=== PATIENT | female | born 1990 | race Asian ===

== ENCOUNTER 2024-06-06 08:24 | Emergency (ER) | payer BC, SELFPAY ==
--- NOTE | 2024-06-06 08:41 | PD.EDSKIN ---
ED Skin Abcess FB-RME/HPI General Chief complaint: Skin/Abscess/Foreign Body Stated complaint: body rash, pt concerned chicken pox or shingles Time Seen by Provider: 06/06/24 08:27 Source: patient, RN notes reviewed and old records reviewed Arrival date/time: 06/06/24 08:24 Mode of arrival: ambulatory Limitations: no limitations RME / HPI RME / HPI narrative: 34yof presents to ED for generalized itchy rash that initiated last night. Patient denies new soaps, detergents, foods, medications or outdoor exposures. No tongue/throat swelling, shortness of breath, nausea/vomiting or dizziness reported. No medications or treatments since symptom onset. Related Data Home Medications ?Medication ?Instructions ?Recorded ?Confirmed lisinopril 10 mg tablet 10 mg PO QDAY 10/29/18 11/17/20 atorvastatin 10 mg tablet 10 mg PO QPM 02/05/19 11/17/20 dulaglutide 1.5 mg/0.5 mL 1.5 mg subcut QWEEK 11/17/20 11/17/20 subcutaneous pen injector (Trulicity) glipizide 5 mg tablet 5 mg PO BID 11/17/20 11/17/20 metoprolol succinate 50 mg 50 mg PO QDAY 11/17/20 11/17/20 tablet,extended release 24 hr Previous Rx's ?Medication ?Instructions ?Recorded sertraline 25 mg tablet (Zoloft) 25 mg PO QDAY #30 tabs 11/17/20 azithromycin 500 mg tablet See Rx Instructions PO .COMPLEX #6 10/24/21 tabs promethazine-DM 6.25 mg-15 mg/5 mL 5 ml PO Q6H PRN cough #473 mL 10/24/21 oral syrup diphenhydramine HCl 25 mg capsule 50 mg (2 x 25 mg) PO TID PRN 06/06/24 (Benadryl) itching #30 caps famotidine 40 mg tablet (Pepcid) 40 mg PO QDAY #7 tabs 06/06/24 hydrocortisone 2.5 % topical cream 1 applic topical BID PRN itching 06/06/24 or rash #30 grams prednisone 50 mg tablet 50 mg PO QDAY #5 tabs 06/06/24 Allergies Allergy/AdvReac Type Severity Reaction Status Date / Time No Known Allergies Allergy Verified 10/24/21 12:26 Review of Systems Review of Systems Systems Reviewed: All systems reviewed, normal except as documented Constitutional Constitutional: Denies chills and Denies fever(s) ENT Ears, Nose, Mouth, and Throat: Denies throat swelling and Denies tongue swelling Cardiovascular Cardiovascular: Denies dyspnea Respiratory Respiratory: Denies dyspnea Gastrointestinal Gastrointestinal: Denies nausea and Denies vomiting Integumentary/Breasts Skin/Breast: Reports pruritus, Reports rash and Denies skin pain Allergic/Immunologic Allergic/Immunologic: Denies throat swelling and Denies tongue swelling Past Medical History Past Medical History CARDIAC: Positive Hypercholesterolemia ENDOCRINE: Positive Diabetes Mellitus Type 2 Surgical History OTHER SURGICAL HX: denies pshx Social History SMOKING STATUS: Never smoker SUBSTANCE USE: does not use ALCOHOL: Never Past Medical History Comments PMH COMMENT: obesity ED Exam General Limitations: Present no limitations General appearance: Present alert and in no apparent distress Head Head exam: Present atraumatic and normocephalic Eye Eye exam: Present normal appearance, PERRL and EOMI ENT ENT exam: Present normal exam, normal oropharynx and mucous membranes moist Neck Neck exam: Present normal inspection and full ROM Chest Chest inspection: Present normal inspection and symmetric chest wall rise Respiratory Respiratory exam: Present normal lung sounds bilaterally; Absent respiratory distress, wheezes or stridor Cardiovascular Cardiovascular exam: Present normal rhythm and tachycardia Extremities Exam Extremities exam: Present normal inspection and full ROM Neurological Exam Neurological exam: Present alert and oriented X3 Psychiatric Psychiatric exam: Present normal affect and normal mood Skin Skin exam: Present warm, dry, intact and rash (generalized scattered erythematous maculopapular rash) Course Course Course Narrative: 1000: Patient reassessed. Symptoms have not improved s/p meds administered. Will order IV solumedrol and IVF. Quality Measures none Orders Category Date Time Status Dexamethasone Inj [Decadron Inj] Med 06/06/24 08:40 Discontinued 10 mg IM X1 ONE DiphenhydrAMINE [Benadryl] Med 06/06/24 08:40 Discontinued 50 mg PO X1 ONE Famotidine [Pepcid] Med 06/06/24 08:40 Discontinued 40 mg PO X1 ONE MethylPREDNISolone.* [SoluMEDROL Inj] Med 06/06/24 10:00 Discontinued 125 mg IVP X1 ONE Sodium Chloride 0.9% 1000 ml [Ns] 1,000 ml Med 06/06/24 10:01 Discontinued IV 999 mls/hr Vital Signs Vital signs: Vital Signs Temperature 99.5 F 06/06/24 08:42 Pulse Rate 119 H 06/06/24 08:42 Respiratory Rate 20 06/06/24 08:42 Blood Pressure 150/90 H 06/06/24 08:42 Pulse Oximetry (%) 96 06/06/24 08:42 Oxygen Delivery Method Room Air 06/06/24 08:42 Skin / Abscess / Foreign Body MDM Narrative MDM Narrative:: 34yof presents to ED for generalized itchy rash that initiated last night. Patient denies new soaps, detergents, foods, medications or outdoor exposures. No tongue/throat swelling, shortness of breath, nausea/vomiting or dizziness reported. No medications or treatments since symptom onset. Symptoms improving, rash resolving after medication/IVF administered. Patient is well-appearing, no evidence of respiratory distress or airway compromise. Will Rx 5-day course of prednisone, recommended close glucose monitoring and glycemic control. po Benadryl and topical steroid prn itching. Stable for discharge, RTED precautions given. Patient data External records reviewed:: [facility] previous records (10/24/21 ED visit for URI) Clinical information provided by:: patient Social determinants that could affect healthcare access:: none Patient has the following chronic illnesses:: DM, obesity, HLD How is presenting disease/condition affected by chronic disease/condition?: uneffected by Evaluation data The following diagnostics were reviewed and interpreted by me:: other (specify) (none) Lab and/or radiology exams considered but not ordered:: none Interpretation Summary: na Medications / Prescriptions Medications or Prescriptions considered but not ordered:: no antibiotics recommended at this time Medication administrations:: Medication Administration History Discontinued Medications Dexamethasone Sodium Phosphate (Dexamethasone Sod Phos Inj 10 Mg/Ml Vial) 10 mg IM X1 ONE Stop: 06/06/24 08:41 Last Admin: 06/06/24 08:57 Dose: 10 mg Documented By: ED Diphenhydramine HCl (Diphenhydramine 25 Mg Capsule) 50 mg PO X1 ONE Stop: 06/06/24 08:41 Last Admin: 06/06/24 08:55 Dose: 50 mg Documented By: ED Famotidine (Famotidine 20 Mg Tablet) 40 mg PO X1 ONE Stop: 06/06/24 08:41 Last Admin: 06/06/24 08:55 Dose: 40 mg Documented By: ED Sodium Chloride (Ns) 1,000 mls @ 999 mls/hr IV .Q1H1M ONE Stop: 06/06/24 11:01 Last Infusion: 06/06/24 11:41 Dose: Infused Documented By: Admin: 06/06/24 10:40 Dose: 999 mls/hr Documented By: ED Methylprednisolone Sodium Succinate (Methylprednisolone Sod Succ 62.5 Mg/Ml 2ml Vial) 125 mg IVP X1 ONE Stop: 06/06/24 10:01 Last Admin: 06/06/24 10:41 Dose: 125 mg Documented By: ED above medications administered in ED Consultations Consultation(s) initiated? (list below): No Diagnosis Skin/Abscess Differential Diagnosis: viral exanthem, urticaria, allergic reaction to drug, eczema, insect bites and contact dermatitis Most likely diagnosis given after review of the tests above:: dermatitis, allergic reaction Admission Indicated Admission indicated?: not indicated Admission Request Was there a request for admission?: No Disposition Plan Disposition Plan: Discharge Discharge Attestation Discharge Attestation: The patient and all family members were given an opportunity to ask questions and understood the discharge instructions. Discharge instructions specifically effects, indications for sooner follow up or return to the emergency department, and the expected course of current diagnosis. Patient condition: Stable Discharge Plan Plan Patient Disposition: HOME (Self Care) Patient condition on transfer: Stable Prescriptions/Referrals Prescriptions/Med Rec: New prednisone 50 mg tablet 50 mg PO QDAY Qty: 5 0RF diphenhydramine HCl [Benadryl] 25 mg capsule 50 mg PO TID PRN (Reason: itching) Qty: 30 0RF famotidine [Pepcid] 40 mg tablet 40 mg PO QDAY Qty: 7 0RF hydrocortisone 2.5 % cream 1 applic topical BID PRN (Reason: itching or rash) Qty: 30 0RF No Action lisinopril 10 mg tablet 10 mg PO QDAY atorvastatin 10 mg Tablet 10 mg PO QPM metoprolol succinate 50 mg Tablet Extended Release 24 Hr 50 mg PO QDAY glipizide 5 mg Tablet 5 mg PO BID Trulicity 1.5 mg/0.5 mL pen injector 1.5 mg SUBCUT QWEEK Patient Comments: INJECT 1 APPLICATION SUBCUTANEOUSLY DIRECTED WEEKLY Rx Instructions: . sertraline [Zoloft] 25 mg tablet 25 mg PO QDAY Qty: 30 0RF promethazine-DM 6.25-15 mg/5 mL syrup 5 ml PO Q6H PRN (Reason: cough) Qty: 473 0RF azithromycin 500 mg tablet See Rx Instructions .ROUTE .COMPLEX Qty: 6 0RF Rx Instructions: take 500 mg today (day 1), then 250 mg for 4 days (days 2-5) Referrals: Anahi Portillo MD [Primary Care Provider] - In 1 week Problem List Clinical Impression: Dermatitis, Allergic reaction Patient/Caregiver Discharge Instructions Education Materials: ED General Allergic Reactions Print Language: Bur[place]ian Stand Alone Forms: Isabela Award Info., Patient Portal Info Letter PA/CODING MACHINE OPERATOR Supervising Physician PA/CODING MACHINE OPERATOR Supervising Physician: Perla
[2024-06-06 08:42] VITALS: BP 150/90; PULSE 119; RESP 20; TEMP 37.5; O2SAT 96; BMI 34.9
[2024-06-06] MEDS: FAMOTIDINE 20 MG TABLET 40 MG PO (08:55)
[2024-06-06] MEDS: DiphenhydrAMINE 25 MG CAPSULE 50 MG PO (08:55)
[2024-06-06] MEDS: DEXAMETHASONE SOD PHOS INJ 10 MG/ML VIAL IM (08:57)
[2024-06-06] MEDS: SODIUM CHLORIDE 0.9% 1000 ML 1,000 ML 999 ML IV (10:40)
[2024-06-06] MEDS: MethylPREDNISolone SOD SUCC 62.5 MG/ML 2ML VIAL 125 MG IVP (10:41)
[2024-06-06 11:43] VITALS: BP 122/77; PULSE 107; RESP 18; TEMP 36.9; O2SAT 96
== END 2024-06-06 11:52 | disposition home or self-care (01) ==
PROVIDERS: Emergency Provider Emergency Medicine; PCP Internal Medicine
DX: L23.9 Allergic contact dermatitis, unspecified cause (principal)
CPT/HCPCS: 82947; 96361; 96372; 96374; 99284; J1100; J2919; J7030; A9270

== ENCOUNTER 2024-06-07 22:21 | Emergency (ER) | payer BC, SELFPAY ==
[2024-06-07 22:24] VITALS: BMI 34.9
--- NOTE | 2024-06-07 22:38 | EDNOTE_ITS ---
<Statement entered by Jeannie Anaya MD - 06/18/24 17:38> As co-signing physician, I was present and available for consult prn. I concur with the plan and care as documented by the midlevel provider. ED Skin Abcess FB-RME/HPI General Chief complaint: Skin/Abscess/Foreign Body Stated complaint: RASH Time Seen by Provider: 06/07/24 22:28 Arrival date/time: 06/07/24 22:21 RME / HPI RME / HPI narrative: 34-year-old female patient came in for evaluation regarding multiple skin lesions. Patient's been having skin lesion for the last 1 to 2 days, was here yesterday and was and was diagnosed with rashes. Today patient was noted to have body malaise, low-grade fever, Body aches, severity moderate. Also noted worsening blister scattered all over. Including the top of the head. Denies any ill contacts. No medications taken prior to arrival. Related Data Home Medications ?Medication ?Instructions ?Recorded ?Confirmed lisinopril 10 mg tablet 10 mg PO QDAY 10/29/18 11/17/20 atorvastatin 10 mg tablet 10 mg PO QPM 02/05/19 11/17/20 dulaglutide 1.5 mg/0.5 mL 1.5 mg subcut QWEEK 11/17/20 11/17/20 subcutaneous pen injector (Trulicity) glipizide 5 mg tablet 5 mg PO BID 11/17/20 11/17/20 metoprolol succinate 50 mg 50 mg PO QDAY 11/17/20 11/17/20 tablet,extended release 24 hr Previous Rx's ?Medication ?Instructions ?Recorded sertraline 25 mg tablet (Zoloft) 25 mg PO QDAY #30 tabs 11/17/20 azithromycin 500 mg tablet See Rx Instructions PO .COMPLEX #6 10/24/21 tabs promethazine-DM 6.25 mg-15 mg/5 mL 5 ml PO Q6H PRN cough #473 mL 10/24/21 oral syrup diphenhydramine HCl 25 mg capsule 50 mg (2 x 25 mg) PO TID PRN 06/06/24 (Benadryl) itching #30 caps famotidine 40 mg tablet (Pepcid) 40 mg PO QDAY #7 tabs 06/06/24 hydrocortisone 2.5 % topical cream 1 applic topical BID PRN itching 06/06/24 or rash #30 grams prednisone 50 mg tablet 50 mg PO QDAY #5 tabs 06/06/24 ibuprofen 800 mg tablet 800 mg PO Q8H PRN pain #30 tabs 06/07/24 valacyclovir 1 gram tablet 1,000 mg PO TID #21 tabs 06/07/24 (Valtrex) Allergies Allergy/AdvReac Type Severity Reaction Status Date / Time No Known Allergies Allergy Verified 06/07/24 22:24 Review of Systems Review of Systems Narrative Review of Systems: Review of system reviewed and within normal limits except mentioned in HPI ED Exam Narrative Physical exam: VITAL SIGNS: Reviewed. GENERAL APPEARANCE: Alert and interactive, follows commands, no acute distress, HEAD AND FACE: Non-traumatic. ENT: PERRL, pink conjunctivitis, eyelid no trauma NECK: Supple, nontender, no nuchal rigidity. CHEST: No tenderness, no crepitus, no paradoxical movement, no retractions. LUNGS: Clear, well ventilated, symmetric, no rales, no wheezing, no ronchi, no stridor, good breath sounds bilaterally. HEART: Regular rate, regular rhythm, no murmur, no gallops. ABDOMEN: Soft, positive bowel sounds, nondistended, no guarding, nontender, no rebound, no masses, RECTAL: Deferred. GENITAL: Deferred. NEUROLOGICAL: Gross motor function intact sensory function intact, Appropriate for age. MUSCULOSKELETAL: low back nontender, full range of motion. EXTREMITIES: Nontender, full range of motion. SKIN: Color pink, dry, multiple papular rashes, some with scabbing some with blisters, scattered all over some with umbilication, no lacerations, no abrasions, no contusions. LYMPHATICS: Deferred. Course Quality Measures none Orders Category Date Time Status Acyclovir [Zovirax] Med 06/07/24 22:37 Once 800 mg PO X1 ONE Ibuprofen Tab [Motrin Tab] Med 06/07/24 22:29 Discontinued 800 mg PO X1 ONE Valtrex Med 06/07/24 22:30 Discontinued 1,000 mg PO X1 ONE Skin / Abscess / Foreign Body MDM Narrative MDM Narrative:: 34-year-old female patient came in for evaluation regarding multiple skin lesions. Patient's been having skin lesion for the last 1 to 2 days, was here yesterday and was and was diagnosed with rashes. Today patient was noted to have body malaise, low-grade fever, Body aches, severity moderate. Also noted worsening blister scattered all over. Including the top of the head. Denies any ill contacts. No medications taken prior to arrival. Clinically patient is having chickenpox. Patient received first dose of antiviral medication in the emergency room. Patient will be sent home on Valtrex. Patient data External records reviewed:: None Clinical information provided by:: none Social determinants that could affect healthcare access:: none Patient has the following chronic illnesses:: Diabetes mellitus How is presenting disease/condition affected by chronic disease/condition?: uneffected by Evaluation data The following diagnostics were reviewed and interpreted by me:: other (specify) (None) Lab and/or radiology exams considered but not ordered:: None Interpretation Summary: none Medications / Prescriptions Medications or Prescriptions considered but not ordered:: None Medication administrations:: Medication Administration History Acyclovir (Acyclovir 800 Mg Tablet) 800 mg PO X1 ONE Stop: 06/07/24 22:38 Discontinued Medications Ibuprofen (Ibuprofen Tab 400 Mg Tablet) 800 mg PO X1 ONE Stop: 06/07/24 22:30 Non-Formulary Medication (Valtrex) 1,000 mg PO X1 ONE Stop: 06/07/24 22:31 Zovirax, and Motrin Consultations Consultation(s) initiated? (list below): No Diagnosis Skin/Abscess Differential Diagnosis: abscess of skin or subcutaneous tissue, viral exanthem, impetigo and other (Chickenpox) Most likely diagnosis given after review of the tests above:: Chickenpox Admission Indicated Admission indicated?: not indicated Explain why admission is indicated or not indicated:: Stable Admission Request Was there a request for admission?: No Disposition Plan Disposition Plan: Discharge Discharge Attestation Discharge Attestation: The patient was given an opportunity to ask questions and understood the discharge instructions. Discharge instructions specifically effects, indications for sooner follow up or return to the emergency department, and the expected course of current diagnosis. Patient condition: Stable Discharge Plan Plan Patient Disposition: HOME (Self Care) Disposition Comment: Stable Prescriptions/Referrals Prescriptions/Med Rec: New valacyclovir [Valtrex] 1 gram tablet 1,000 mg PO TID Qty: 21 0RF ibuprofen 800 mg tablet 800 mg PO Q8H PRN (Reason: pain) Qty: 30 0RF No Action lisinopril 10 mg tablet 10 mg PO QDAY atorvastatin 10 mg Tablet 10 mg PO QPM metoprolol succinate 50 mg Tablet Extended Release 24 Hr 50 mg PO QDAY glipizide 5 mg Tablet 5 mg PO BID Trulicity 1.5 mg/0.5 mL pen injector 1.5 mg SUBCUT QWEEK Patient Comments: INJECT 1 APPLICATION SUBCUTANEOUSLY DIRECTED WEEKLY Rx Instructions: . sertraline [Zoloft] 25 mg tablet 25 mg PO QDAY Qty: 30 0RF promethazine-DM 6.25-15 mg/5 mL syrup 5 ml PO Q6H PRN (Reason: cough) Qty: 473 0RF azithromycin 500 mg tablet See Rx Instructions .ROUTE .COMPLEX Qty: 6 0RF Rx Instructions: take 500 mg today (day 1), then 250 mg for 4 days (days 2-5) prednisone 50 mg tablet 50 mg PO QDAY Qty: 5 0RF diphenhydramine HCl [Benadryl] 25 mg capsule 50 mg PO TID PRN (Reason: itching) Qty: 30 0RF famotidine [Pepcid] 40 mg tablet 40 mg PO QDAY Qty: 7 0RF hydrocortisone 2.5 % cream 1 applic topical BID PRN (Reason: itching or rash) Qty: 30 0RF Problem List Clinical Impression: Chicken pox Patient/Caregiver Discharge Instructions Discharge Activity: activity as tolerated Education Materials: ED Chickenpox (Adult) Additional Instructions: Thank you for the opportunity for serving you today. You are stable for discharged . You are advised to: Follow-up with your PCP in 1 to 2 days Return to ED for worsening of symptoms Increase oral fluids Take medication as prescribed You are contagious try to isolate yourself until all the lesions already scabs Print Language: Divehi Stand Alone Forms: Isabela Award Info., Work/School Release, Patient Portal Info Letter ANJALI/LEDY Supervising Physician ANJALI/LEDY Supervising Physician: MD Héctor
[2024-06-07] MEDS: IBUPROFEN TAB 400 MG TABLET 800 MG PO (22:39)
[2024-06-07 22:42] VITALS: BP 139/84; PULSE 118; RESP 18; TEMP 36.6; O2SAT 98
[2024-06-07] MEDS: ACYCLOVIR 800 MG TABLET PO (23:33)
== END 2024-06-07 23:48 | disposition home or self-care (01) ==
LOC: SERX 23:19
PROVIDERS: Emergency Provider Emergency Medicine; PCP Internal Medicine
DX: B01.9 Varicella without complication (principal)
CPT/HCPCS: 99282; A9270

== ENCOUNTER → 2025-03-03 | Outpatient (CLI) | payer BC, SELFPAY ==
[2025-03-03 09:28] LABS: Collection Type, Urine Clean Catch
[2025-03-03 10:14] LABS: Basophils # (Auto) 0.1 Thou/mm3 (0.0-0.2); Basophils % (Auto) 1 % (0-2.5); Eosinophils # (Auto) 0.2 Thou/mm3 (0.0-0.5); Eosinophils % (Auto) 4 % (0-10); Hematocrit 43.6 % (36.0-46.0); Hemoglobin 14.9 g/dL (12.0-16.0); Immature Granulocytes Auto 0.06 Thou/mm3 (0.00-0.00); Lymphocytes # (Auto) 1.3 Thou/mm3 (1.0-4.8); Lymphocytes % (Auto) 22 % (10-50); Mean Corpuscular HGB Conc 34.2 g/dl (31.0-37.0); Mean Corpuscular Hemoglobin 28.5 pg (25.0-35.0); Mean Corpuscular Volume 83 fL (80-100); Monocytes # (Auto) 0.4 Thou/mm3 (0.0-0.8); Monocytes % (Auto) 7 % (0-12); Neutrophils # (Auto) 4.0 Thou/mm3 (1.8-7.7); Neutrophils % (Auto) 66 % (37-80); Nucleated Red Blood Cell # 0.00 Thou/mm3 (0.00-0.00); Nucleated Red Blood Cell % 0 /100 WBC (0); Platelet Count 231 Thou/mm3 (140-440); RDW Standard Deviation 36.8 fL (36.4-46.3); Red Blood Count 5.23 Miln/mm3 (4.00-5.20); White Blood Count 6.1 Thou/mm3 (3.6-11.0)
[2025-03-03 10:21] LABS: Glucose Estimated Average 249 mg/dL (80-131); Hemoglobin A1C 10.3 % Hgb (4.8-6.0)
[2025-03-03 10:26] LABS: Vitamin B12 529 pg/mL (211-911); Vitamin D 25 Hydroxy Total 19.4 ng/mL (7.3-40.2)
[2025-03-03 10:29] LABS: Alanine Aminotransferase 65 U/L (10-49); Albumin, Serum 4.1 gm/dL (3.5-5.0); Albumin/Globulin Ratio 1.7 (1.2-2.2); Alkaline Phosphatase 67 U/L (46-116); Anion Gap 13 (7-16); Aspartate Amino Transferase 50 U/L (0-34); BUN/Creatinine Ratio 14 Ratio (12-20); Bilirubin,Total 0.7 mg/dL (0.3-1.2); Blood Urea Nitrogen 10 mg/dL (9-23); Calcium 9.2 mg/dL (8.3-10.6); Calcium (Corrected) 9.2 mg/dL (8.5-10.1); Carbon Dioxide 28.1 mMol/L (20.0-31.0); Cardiac Risk Estimate 4.1 RATIO (3.7-5.6); Chloride 97 mMol/L (98-107); Cholesterol 236 mg/dL (132-200); Creatinine (Component) 0.7 mg/dL (0.6-1.3); Globulin 2.4 gm/dL (2.3-3.5); Glucose 255 mg/dL (74-106); HDL Cholesterol 58 mg/dL (40-60); LDL Cholesterol,Calculated 136 mg/dL (0-130); Osmolality,Calculated 283 (275-295); Potassium 4.1 mMol/L (3.4-5.1); Sodium 138 mMol/L (136-145); Thyroid Stimulating Hormone 1.16 uIU/mL (0.55-4.78); Total Protein 6.5 gm/dL (5.7-8.2); Triglycerides 210 mg/dL (30-150); Uric Acid 7.0 mg/dL (3.1-7.8); eGFR > 60 See Note
[2025-03-03 10:40] LABS: Bilirubin,Urine Negative (Negative); Blood,Urine Trace (Negative); Color,Urine Yellow (Lt Yel-Yel); Creatinine MALB Rnd Ur 179 mg/dL (30-125); Glucose, Urine 4+ (Negative); Ketones,Urine 2+ (Negative); Leukocyte Esterase,Urine Positive (Negative); Nitrite,Urine Negative (Negative); PH,Urine 6.0 (5.0-7.0); Protein,Urine 2+ (Neg - Trace); RBC,Urine 6 /hpf (0-3); Specific Gravity,Urine 1.030 (1.001-1.035); Squamous Epithelial Cell,Urine 7 /hpf (0-5); Urobilinogen,Urine Negative mg/dL (0.0-1.0); WBC,Urine 16 /hpf (0-5)
[2025-03-03 10:52] LABS: Microalbumin Creat Ratio 779 mg/gCrea (<30); Microalbumin, Random Urine 1394 mg/L (0-300)
[2025-03-03 10:53] LABS: Clarity,Urine Hazy (Clear/Hazy)
== END | disposition home or self-care (01) ==
LOC: COPL 08:22
PROVIDERS: PCP Internal Medicine; Referring Provider Internal Medicine; Visit Provider Internal Medicine
DX: E11.9 Type 2 diabetes mellitus without complications (principal); I10 Essential (primary) hypertension; E78.5 Hyperlipidemia, unspecified
CPT/HCPCS: 36415; 80053; 80061; 81001; 82043; 82306; 82570; 82607; 83036; 84443; 84550; 85025